=== PATIENT | female | born 1990 | race Caucasian/White ===

== ENCOUNTER 2021-07-17 13:30 | Emergency (ER) | payer BC ==
--- NOTE | 2021-07-17 13:45 | NUR ---
pt states she has appointment at 1430. in triage, pt states she changed her mind and would like to be seen by her OBGYN
== END 2021-07-17 13:45 | disposition left against medical advice (07) ==
LOC: MED 13:30
DX: O26.891 Other specified pregnancy related conditions, first trimester (principal); Z3A.12 12 weeks gestation of pregnancy; Z53.21 Procedure and treatment not carried out due to patient leaving prior to being seen by health care provider